=== PATIENT | female | born 1995 | race Caucasian/White ===

== ENCOUNTER 2017-01-09 09:40 | Emergency (ER) | payer BC ==
[2017-01-09 09:52] VITALS: BP 120/78
--- NOTE | 2017-01-09 11:39 | ED ---
Darshan Rosales Billy, scribed for Rich Rodriguez MD on 01/09/17 at 1108 . Skin Complaint - HPI Summary HPI Summary: Patient is a 21 year-old female coming to [facility] presenting with constant pain and swelling on the right side of the bottom lip. Pain severity 8/10. She first noticed her symptoms 4 days ago, but had believed that it was acne. The pain has progressively gotten worse since onset, and it has begun to radiate to the jaw, teeth, and chin. Nothing has made her symptoms better/worse. She denies any other symptoms at this time. Denies similar prior episodes. - History of Current Complaint Chief Complaint: EDRashSkinAbscess Time Seen by Provider: 01/09/17 10:20 Stated Complaint: LIP PAIN/VOMITING/FEVER Hx Obtained From: Patient Onset/Duration: Started Days Ago Timing: Constant Onset Severity: Moderate Current Severity: Moderate Pain Intensity: 8 Pain Scale Used: 0-10 Numeric Skin Location: Other: - right lower lip Aggravating Symptom(s): Nothing Alleviating Symptom(s): Nothing Associated Signs & Symptoms: Negative PMH/Surg Hx/FS Hx/Imm Hx Endocrine/Hematology History: Denies: Hx Diabetes Cardiovascular History: Denies: Hx Hypertension Psychiatric History: Reports: Hx Depression Infectious Disease History: No Infectious Disease History: Denies: Traveled Outside the [place] in Last 30 Days - Family History Known Family History: Positive: Diabetes - T1DM (brother) - Social History Occupation: Student Alcohol Use: Occasionally Hx Substance Use: No Substance Use Type: Reports: None Hx Tobacco Use: No Smoking Status (MU): Never Smoked Tobacco Review of Systems Negative: Fever Positive: Other - right lower lip pain/swelling All Other Systems Reviewed And Are Negative: Yes Physical Exam Triage Information Reviewed: Yes Vital Signs On Initial Exam: Initial Vitals Temp Pulse Resp BP Pulse Ox 99.2 F 100 16 120/78 99 01/09/17 09:45 01/09/17 09:45 01/09/17 09:45 01/09/17 09:45 01/09/17 09:45 Vital Signs Reviewed: Yes Appearance: Positive: Well-Appearing, No Pain Distress Skin: Positive: Warm, Skin Color Reflects Adequate Perfusion, Dry, Other - Right lower lip is swollen, erythematous, and indurated. Head/Face: Positive: Normal Head/Face Inspection Eyes: Positive: Normal Neck: Positive: Supple, Nontender Respiratory/Lung Sounds: Positive: Clear to Auscultation Cardiovascular: Positive: RRR Abdomen Description: Positive: Nontender, Soft Musculoskeletal: Positive: Normal Neurological: Positive: Normal Psychiatric: Positive: Normal, Affect/Mood Appropriate AVPU Assessment: Alert Diagnostics - Vital Signs Vital Signs Temp Pulse Resp BP Pulse Ox 01/09/17 09:45 99.2 F 100 16 120/78 99 - Laboratory Lab Statement: Any lab studies that have been ordered have been reviewed, and results considered in the medical decision making process. Course/Dx - Course Course Of Treatment: Ms. Alejo has an indurated, erythematous and tender swelling of her right lower lip. This may become an abscess but is not fluctuant at this time. She reports that it first appeared at the [place] and I am most concerned about skin organisms. She will be treated with antibiotics and she waived pain meds. - Diagnoses Provider Diagnoses: Infection of lip Discharge - Discharge Plan Condition: Stable Disposition: HOME Prescriptions: Cephalexin CAP* [Keflex CAP*] 500 mg PO QID #28 cap Additional Instructions: RETURN TO THE EMERGENCY ROOM WITH WORSENING SYMPTOMS SUCH FEVERS OR CHILLS. The documentation as recorded by the Darshan haque Billy accurately reflects the service I personally performed and the decisions made by me, Rich Rodriguez MD.
== END 2017-01-09 11:57 | disposition home or self-care (01) ==
LOC: ED 09:40
DX: L08.9 Local infection of the skin and subcutaneous tissue, unspecified (principal)
CPT/HCPCS: 99281